=== PATIENT | female | born 2000 | race Caucasian/White ===

== ENCOUNTER 2023-06-09 21:08 | Emergency (ER) | payer OTHER, SELFPAY ==
--- NOTE | 2023-06-09 21:12 | ED.PSYCH ---
HPI - Psych General Chief Complaint: General Medical Stated Complaint: Crisis Eval Time Seen by Provider: 06/09/23 22:02 Source: patient Mode of arrival: ambulatory Limitations: no limitations History of Present Illness HPI Narrative: Patient comes to the emergency room complaining of anxiety, depression, PTSD/flashbacks. Patient states that she is not suicidal or homicidal, patient states that she wants to talk to the care team and get resources to get back into therapy. Patient states that about a year ago she was taking medications for mental conditions. Otherwise, patient has no complaints. Related Data Allergies Allergy/AdvReac Type Severity Reaction Status Date / Time amoxicillin [AMOXICILLIN] Allergy Intermediate HIVES Verified 06/09/23 21:15 Review of Systems Review of Systems: Constitutional : No Weight loss, No Fever, No Chills, No Night Sweats, No Fatigue, No Malaise ENT/Mouth : No Hearing loss, No Ear Pain, No Nasal Congestion, No Sinus Pain, No Hoarseness, No sore throat, No Rhinorrhea, No Swallowing Difficulty Eyes: No Eye Pain, No Swelling, No Redness, No Foreign Body, No Discharge, No Vision Changes Cardiovascular : No Chest Pain, No SOB, No Dyspnea on Exertion, No Orthopnea, No Edema, No Palpitations Respiratory : No Cough, No Sputum, No Wheezing, No Smoke Exposure, No Dyspnea Gastrointestinal : No Nausea, No Vomiting, No Diarrhea, No Constipation, No abdominal Pain, No Hematochezia, No Melena Genitourinary : no irregular bleeding, No Dysuria, No Urinary Frequency, No Hematuria, No Urinary Incontinence, No Urgency, No Flank Pain, No Urinary Flow Changes, No Hesitancy Musculoskeletal : No joint pain, No Myalgias, No Joint Swelling Skin : No Skin Lesions, No rash Neuro : No Weakness, No Numbness, No Paresthesias, No Loss of Consciousness, No Dizziness, No Headache Psych : Complaining of anxiety and depression, PTSD Co No SI/HI/AH/VH, No Social Issues, Heme/Lymph: No Bruising, No Bleeding,No Lymphadenopathy Endocrine : No Polyuria, No Polydipsia, No Temperature Intolerance [facility] Past Medical History Medical History (Updated 06/09/23 @ 22:28 by Leeanne Duran MD) ADD (attention deficit disorder) Chronic post-traumatic stress disorder (PTSD) Anxiety and depression Social History Social History Advance Directives: No Advance Directives Information Provided: No Physical Exam Vital Signs: Vital Signs: Last Vital Signs Temp 98.7 F 06/09/23 23:40 Pulse 87 06/09/23 23:40 Resp 18 06/09/23 23:40 BP 130/75 06/09/23 23:40 Pulse Ox 99 06/09/23 23:40 O2 Del Method Room Air 06/09/23 23:40 BMI result Body Mass Index 24.0 Const: Other: Appearance: Alert. Oriented X3. No acute distress. Eyes: Pupils equal, round and reactive to light. ENT: Pharynx normal. Neck: Normal inspection. Neck supple. No lymph nodes noted. No crepitus CVS: Normal heart rate and rhythm. Pulses normal. Normal S1 and S2 Respiratory: No respiratory distress. Breath sounds normal. No Wheezing. No rales Abdomen: Soft and nontender. No rigidity. No distention. Skin: Skin warm and dry. Normal skin color. Normal skin turgor. Extremities: No lower extremity edema. No Lacerations. No Rash Neuro: Oriented X 3. No motor deficit. No sensory deficit. Moving all extremities. No slurred speech. CN 2 through 12 grossly intact Psych: calm, cooperative, normal affect Course Course Course Narrative: This is an RME: Additional HPI, ROS, PE not included below will be deferred to primary provider. This is a [id number] presenting to the emergency department with complaints of increased depression. No SI/HI. No auditory or visual hallucinations. Endorsed some PTSD/flashbacks. Just wants someone to talk to. She works as a [employer] Plan: labs, ua, care team Medical Decision Making Medical Decision Making [facility] Narrative: -all of patient's labs pending -care team consult pending -patient is not suicidal or homicidal, Section 12 not indicated -my interpretation of labs, normal hematology and chemistry, negative test, negative UA and negative toxicology test -the care team evaluated the patient, patient was given resources for therapy, patient agreeable with plan, ready for discharge Differential Diagnosis Differential Diagnoses: The differential diagnosis associated with the presentation includes (Anxiety, depression, PTSD) Lab Data [facility] Lab Attestation statement: I reviewed the patient's lab results. 06/09/23 21:59 06/09/23 21:59 Labs: Lab Results 06/09/23 06/09/23 Range/Units 21:59 22:22 WBC 8.1 (4.8-10.8) X10*3/uL RBC 5.19 (4.20-5.50) X10*6/uL Hgb 14.4 (12.0-16.0) g/dl Hct 44.5 (37.0-47.0) % MCV 85.7 (80.0-98.0) fL MCH 27.7 (27.0-33.0) pg MCHC 32.4 (31.0-35.0) g/dl RDW 12.6 (11.0-16.0) % Plt Count 347 (160-400) X10*3/uL MPV 8.9 L (9.4-12.3) fL Immature Gran % (Auto) 0.2 (0.0-0.4) % Neut % (Auto) 70.9 (45-73) % Lymph % (Auto) 19.6 L (20-40) % Glenn % (Auto) 8.1 (2-11) % Eos % (Auto) 0.7 (0-4) % Baso % (Auto) 0.5 (0-2) % Lymph # (Auto) 1.6 (1.2-4.9) X10*3/uL [place] # (Auto) 0.7 (0.1-1.2) X10*3/uL Eos # (Auto) 0.1 (0.0-0.4) X10*3/uL Baso # (Auto) 0.0 (0.0-0.2) X10*3/uL Abs Immat Gran (auto) 0.02 (0.00-0.03) X10*3/uL Absolute Neuts (auto) 5.7 (2.0-8.3) x10*3/uL Absolute Nucleated RBC 0.000 (0.0-0.012) X10*3/uL Nucleated RBC % (auto) 0.0 (0.0-0.2) /100WBC Sodium 139 (135-145) mmol/L Potassium 3.8 (3.3-5.1) mmol/L Chloride 104 (96-108) mmol/L Carbon Dioxide 24 (22-29) mmol/L Anion Gap 15 (12-20) BUN 10 (9-16) mg/dL Creatinine 0.68 (0.5-1.4) mg/dL Estim Creat Clear Calc 110.1 Estimated GFR > 60 Random Glucose 92 (60-115) mg/dL Calcium 10.0 D (8.4-10.2) mg/dL Total Bilirubin 0.4 (0.0-1.0) mg/dL Direct Bilirubin 0.1 (0.0-0.5) mg/dL AST 18 (5-31) U/L ALT 10 (0-31) U/L Alkaline Phosphatase 108 (39-117) U/L Total Protein 8.8 H (6.5-8.0) g/dL Albumin 4.7 (3.5-5.0) g/dL Beta HCG, Quant < 2 mIU/mL Urine Color Yellow Urine Appearance Clear Urine pH 6.0 (5.0-9.0) Ur Specific [place] 1.015 (1.005-1.025) Urine Protein Negative (Neg-Trace) mg/dL Urine Glucose (UA) Negative (Negative) mg/dL Urine Ketones 15 (Negative) mg/dL Urine Blood Trace H (Negative) Urine Nitrite Negative (Negative) Ur Leukocyte Esterase Negative (Negative) Urine RBC 0-2 (0-2) /HPF Urine WBC 0-5 (0-5) /HPF Ur Squamous Epith Cells 0-2 (0-2) /HPF Urine Bacteria None Seen (None Seen) Hyaline Casts 0-2 (0-2) /LPF Urine Opiates Screen Not Detected (Not Detect) Urine Fentanyl Screen Not Detected (Not Detect) Ur Barbiturates Screen Not Detected (Not Detect) Ur Phencyclidine Scrn Not Detected (Not Detect) Ur Amphetamines Screen Not Detected (Not Detect) U Benzodiazepines Scrn Not Detected (Not Detect) Urine Cocaine Screen Not Detected (Not Detect) U Marijuana (THC) Screen Not Detected (Not Detect) Ethyl Alcohol < 10 mg/dL Discharge Plan Discharge Clinical Impression: Anxiety and depression Patient Disposition: Home, Self-Care Instructions: Anxiety (ED) Additional Instructions: Please follow-up with your primary care physician tomorrow. If you have any worsening or new symptoms, please return to the emergency room or call 911
[2023-06-09 21:17] VITALS: BP 132/90; PULSE 91; RESP 18; TEMP 36.3; O2SAT 98; BMI 24.0
--- NOTE | 2023-06-09 21:45 | PC.NURSE ---
Per SUDHIR, no SI/HI, does not need changeover.
[2023-06-09 22:03] LABS: MANUAL DIFF FLAG NO
[2023-06-09 22:04] LABS: Basophils Percent Auto 0.5 % (0-2); Eosinophils Absolute Auto 0.1 X10*3/uL (0.0-0.4); Eosinophils Percent Auto 0.7 % (0-4); Hematocrit 44.5 % (37.0-47.0); Hemoglobin 14.4 g/dl (12.0-16.0); Imm Gran Abs Auto 0.02 X10*3/uL (0.00-0.03); Imm Gran Pct Auto 0.2 % (0.0-0.4); Lymphocytes Absolute Auto 1.6 X10*3/uL (1.2-4.9); Lymphocytes Percent Auto 19.6 % (20-40); Mean Corpuscular HGB Conc 32.4 g/dl (31.0-35.0); Mean Corpuscular Hemoglobin 27.7 pg (27.0-33.0); Mean Corpuscular Volume 85.7 fL (80.0-98.0); Mean Platelet Volume 8.9 fL (9.4-12.3); Monocytes Absolute Auto 0.7 X10*3/uL (0.1-1.2); Monocytes Percent Auto 8.1 % (2-11); Neutrophils Absolute Auto 5.7 x10*3/uL (2.0-8.3); Neutrophils Percent Auto 70.9 % (45-73); Platelet Count 347 X10*3/uL (160-400); Red Blood Count 5.19 X10*6/uL (4.20-5.50); Red Cell Distribution Width 12.6 % (11.0-16.0); White Blood Count 8.1 X10*3/uL (4.8-10.8)
[2023-06-09 22:23] LABS: Ethanol < 10 mg/dL
[2023-06-09 22:28] LABS: Alanine Aminotransferase 10 U/L (0-31); Albumin Level 4.7 g/dL (3.5-5.0); Alkaline Phosphatase 108 U/L (39-117); Anion Gap 15 (12-20); Aspartate Amino Transferase 18 U/L (5-31); Bilirubin Direct 0.1 mg/dL (0.0-0.5); Bilirubin Total 0.4 mg/dL (0.0-1.0); Blood Urea Nitrogen 10 mg/dL (9-16); Carbon Dioxide 24 mmol/L (22-29); Chloride 104 mmol/L (96-108); Creatinine Clr Calc Pharmacy 110.1; Estimated Glomerular Filt Rate > 60; Glucose Random 92 mg/dL (60-115); HCG Quantitative < 2 mIU/mL; Potassium 3.8 mmol/L (3.3-5.1); Sodium 139 mmol/L (135-145); Total Protein 8.8 g/dL (6.5-8.0)
[2023-06-09 22:45] LABS: Appearance Urine Clear; Color Urine Yellow; Glucose Urine UA Negative (Negative); Leukocyte Esterase Urine Negative (Negative); Nitrite Urine Negative (Negative); Specific Gravity - Urine 1.015 (1.005-1.025); UMIC TRIGGER UACC YES; Urine Blood Trace (Negative); Urine Ketones 15 mg/dL (Negative); Urine Protein Negative (Neg-Trace)
[2023-06-09 22:48] LABS: Amphetamine Screen Urine Not Detected (Not Detect); Barbiturates, Urine Not Detected (Not Detect); Benzodiazepines Screen Urine Not Detected (Not Detect); Cannabinoid Screen Urine Not Detected (Not Detect); Cocaine Screen Urine Not Detected (Not Detect); Fentanyl, urine Not Detected (Not Detect); Opiate Screen Urine Not Detected (Not Detect); Phencyclidine Screen Urine Not Detected (Not Detect)
[2023-06-09 22:51] LABS: Bacteria Urine None Seen (None Seen); Hyaline Casts Urine 0-2 /LPF (0-2); RBC Urine 0-2 /HPF (0-2); Squamous Epithelial Cell Urine 0-2 /HPF (0-2); WBC Urine 0-5 /HPF (0-5)
[2023-06-09 23:40] VITALS: BP 130/75; PULSE 87; RESP 18; TEMP 37.1; O2SAT 99
== END 2023-06-10 01:39 | disposition home or self-care (01) ==
PROVIDERS: Physician Assistant Medical; Emergency Provider Emergency Medicine
DX: F41.9 Anxiety disorder, unspecified (principal); F32.A Depression, unspecified; F43.12 Post-traumatic stress disorder, chronic; F98.8 Other specified behavioral and emotional disorders with onset usually occurring in childhood and adolescence
CPT/HCPCS: 36415; 80048; 80076; 80307; 81001; 84702; 85025; 99284; S9485

== ENCOUNTER 2023-10-23 16:58 | Emergency (ER) | payer OTHER, SELFPAY ==
--- NOTE | ~2023-10-23 | US_ITS ---
EXAMINATION: US OBSTETRICAL ULTRASOUND CLINICAL INFORMATION: with cramping and vaginal spotting COMPARISON: None available. LMP: 09/19/2023. Gestational age by maternal dates is 4 weeks 6 days. Estimated date of delivery by maternal dates is 06/25/2024. TECHNIQUE: Both transabdominal and endovaginal scanning was performed. FINDINGS: A small gestational sac may be present which measures 4.5 mm which would be consistent with a gestational age of 5 weeks 0 days. A definitive yolk sac or pole is not seen although there is a tiny soft tissue nodule been present within the sac without any discernible motion or heart rate. Some small cystic areas are seen in the endometrium around the gestational sac. Nabothian cysts are seen within the cervix. TONY (estimated date of delivery based upon gestational sac size): 4 weeks 6 days +/- 4 days. MATERNAL ADNEXA: The right maternal ovary measures 3.7 x 1.8 x 1.9 cm. The left maternal ovary is not seen There is no significant maternal adnexal mass. No maternal pelvic ascites. US/US OB pelvic and transvaginal IMPRESSION: Presumed gestational sac seen in the endometrial canal without a yolk sac and a small nubbin of tissue noted. No heartbeat is seen. Some cystic areas are seen in the endometrium around this sac. Please correlate with hCG and repeat ultrasounds if needed.
[2023-10-23 17:15] VITALS: BP 126/84; PULSE 95; RESP 18; TEMP 36.4; O2SAT 100; BMI 24.2
--- NOTE | 2023-10-23 17:18 | ED_ITS ---
HPI - General Adult General Chief complaint: Vaginal Bleeding Stated complaint: ? Time Seen by Provider: 10/23/23 18:39 Source: patient and RN notes reviewed Mode of arrival: ambulatory Limitations: no limitations History of Present Illness HPI narrative: This is a 23-year-old female, , who presents to the emergency department with complaints of intermittent cramping as well as light vaginal spotting which occurred yesterday. Patient states that her last menstrual cycle was on September 16. She states that yesterday she noticed some cramping as well as light spotting. She states that the spotting has ceased. She does not have any active cramping at this time. She is seeing Diamond ISIDRO for her however does not have an appointment until November 08. She denies any fevers, chills, chest pain, shortness of breath, vomiting, nausea, or urinary symptoms. No other complaints or concerns at this time. MD complaint: , vaginal spotting, cramping Onset (ago): day(s) Radiation: non-radiation Severity: moderate Pain Consistency: now resolved Relieving factors: none Exacerbating factors: none Associated symptoms: denies other symptoms Treatments prior to arrival: none Related Data Allergies Allergy/AdvReac Type Severity Reaction Status Date / Time amoxicillin [AMOXICILLIN] Allergy Intermediate HIVES Verified 10/23/23 17:19 Review of Systems 2 Review of Systems: Yes all other systems are reviewed and are negative Constitutional: Constitutional: Reports as per [facility] Past Medical History Attestation statement: The following information was validated with the patient. Medical History ADD (attention deficit disorder) Chronic post-traumatic stress disorder (PTSD) Anxiety and depression Social History Social History Alcohol intake: former Physical Exam ED Vital Signs: Vital Signs - 24 hr 10/23/23 17:15 10/23/23 18:20 10/23/23 20:47 Temperature 97.5 F 98.0 F Pulse Rate 95 99 Respiratory Rate 18 18 14 Blood Pressure 126/84 123/74 113/77 Pulse Oximetry 100 99 99 Oxygen Delivery Method Room Air Room Air Room Air 10/23/23 21:03 Temperature 98.0 F Pulse Rate 99 Respiratory Rate 14 Blood Pressure 113/77 Pulse Oximetry 99 Oxygen Delivery Method Room Air BMI result Body Mass Index 24.2 Const General: cooperative, comfortable and no acute distress Orientation/consciousness: patient oriented x3 Limitations: no limitations HENMT Head: Yes normal to inspection, Yes normocephalic and Yes atraumatic Ears: hearing grossly normal bilaterally General nose exam: Normal external nose present Face and sinus: Yes normal facial exam Mouth: Normal oral and palatal mucosa present, oropharynx normal and moist mucous membranes Throat: Yes posterior oropharynx normal Eyes General: appearance normal, both eyes and all related structures Eyelids: Yes eyelids normal Conjunctivae: conjunctivae normal Sclerae: sclerae normal Pupils: Equal, round and reactive pupils present EOM: EOMs intact bilaterally Neck Neck: Yes normal visual inspection, Yes full ROM and Yes no lymphadenopathy Lymphatic: no lymphadenopathy noted Chest Chest palpation & inspection: normal inspection of the chest Resp Effort & Inspection: normal respiratory effort and able to speak in complete sentences Auscultation: clear to auscultation bilaterally, no crackles, no rales, no rhonchi and no wheezes Cardio Rate: regular rate Rhythm: regular rhythm Heart sounds: S1 normal heart sound present and S2 normal heart sound present GI Other: Abdomen is soft, nontender, nondistended Inspection: Yes normal to inspection Skin General skin exam: no rashes or lesions noted Trauma: no lacerations or abrasions Wounds: no wounds Neuro General: patient oriented x3 and moves all extremities Cranial nerves: Yes Equal, round and reactive pupils present Extrem General: Yes normal to inspection Right upper extremity: normal to inspection Left upper extremity: normal to inspection Right lower extremity: normal to inspection Left lower extremity: normal to inspection Course Course Course Narrative: RME: 23-year-old female who is last menstruation in September 16 presents to ED for lower abdominal cramping with vaginal spotting. Patient states no other complaints. Labs UA and ultrasound ordered. Reevaluation(s) Reevaluation #1: Discussed case with Dr. Banks, advised on SAB and ectopic warnings and recommending to come back to the ER with pelvic pain and or vaginal bleeding and to follow-up outpatient in 48 hours with follow-up hCG. Rh type positive, does not require RhoGAM at this time. Discussed plan with patient as well as family, they understand and agree with plan. Stable for discharge. Time: 20:38 Medical Decision Making Medical Decision Making MDM Narrative: This is a 23-year-old female, , approximately 3-4 weeks , who presents emergency department with light spotting with cramping since yesterday. Patient states that she only saw scant spotting yesterday this has since resolved. She also endorses some cramping. She states that she has high anxiety and would like to be checked out. Abdomen is soft and nontender. She is feeling well at this time. Vital signs within normal limits. Differential diagnoses include , threatened spontaneous , ectopic , abnormal uterine bleeding Plan: Labs, UA, ultrasound Differential Diagnosis Differential Diagnoses: The differential diagnosis associated with the presentation includes See above Admission/Observation Consideration of admission/observation: Escalation of care including admission/observation considered Escalation of care including admission/observation considered however given workup today not warranted at this time. Lab Data [facility] Lab Attestation statement: I reviewed the patient's lab results. 10/23/23 17:25 10/23/23 17:25 Labs: Lab Results 10/23/23 10/23/23 Range/Units 17:25 19:31 WBC 8.3 (4.8-10.8) X10*3/uL RBC 4.95 (4.20-5.50) X10*6/uL Hgb 14.3 (12.0-16.0) g/dl Hct 41.6 (37.0-47.0) % MCV 84.0 (80.0-98.0) fL MCH 28.9 (27.0-33.0) pg MCHC 34.4 (31.0-35.0) g/dl RDW 14.1 (11.0-16.0) % Plt Count 412 H (160-400) X10*3/uL MPV 9.6 (9.4-12.3) fL Immature Gran % (Auto) 0.2 (0.0-0.4) % Neut % (Auto) 71.7 (45-73) % Lymph % (Auto) 16.1 L (20-40) % [place] % (Auto) 10.3 (2-11) % Eos % (Auto) 1.3 (0-4) % Baso % (Auto) 0.4 (0-2) % Lymph # (Auto) 1.3 (1.2-4.9) X10*3/uL [place] # (Auto) 0.9 (0.1-1.2) X10*3/uL Eos # (Auto) 0.1 (0.0-0.4) X10*3/uL Baso # (Auto) 0.0 (0.0-0.2) X10*3/uL Abs Immat Gran (auto) 0.02 (0.00-0.03) X10*3/uL Absolute Neuts (auto) 6.0 (2.0-8.3) x10*3/uL Absolute Nucleated RBC 0.000 (0.0-0.012) X10*3/uL Nucleated RBC % (auto) 0.0 (0.0-0.2) /100WBC PT 12.8 (11.1-13.3) SEC INR 1.1 (0.9-1.1) APTT 26.3 (26.0-36.8) SEC Sodium 139 (135-145) mmol/L Potassium 3.7 (3.3-5.1) mmol/L Chloride 106 (96-108) mmol/L Carbon Dioxide 25 (22-29) mmol/L Anion Gap 12 (12-20) BUN 8 L (9-16) mg/dL Creatinine 0.66 (0.5-1.4) mg/dL Estim Creat Clear Calc 113.5 Estimated GFR > 60 Random Glucose 91 (60-115) mg/dL Calcium 10.0 (8.4-10.2) mg/dL Total Bilirubin 0.4 (0.0-1.0) mg/dL AST 15 (5-31) U/L ALT 10 (0-31) U/L Alkaline Phosphatase 84 (39-117) U/L Total Protein 8.0 (6.5-8.0) g/dL Albumin 4.4 (3.5-5.0) g/dL Beta HCG, Quant 3499 mIU/mL Urine Color Yellow Urine Appearance Clear Urine pH 6.5 (5.0-9.0) Ur Specific [place] 1.010 (1.005-1.025) Urine Protein Negative (Neg-Trace) mg/dL Urine Glucose (UA) Negative (Negative) mg/dL Urine Ketones Negative (Negative) mg/dL Urine Blood Negative (Negative) Urine Nitrite Negative (Negative) Ur Leukocyte Esterase Negative (Negative) Urine Test POSITIVE H (NEGATIVE) Blood Type A Positive Radiology Impression Discussion of test interpretation with radiology: I have reviewed the radiologist's reading. Radiologist Impression: EXAMINATION: US OBSTETRICAL ULTRASOUND CLINICAL INFORMATION: with cramping and vaginal spotting COMPARISON: None available. LMP: 09/19/2023. Gestational age by maternal dates is 4 weeks 6 days. Estimated date of delivery by maternal dates is 06/25/2024. TECHNIQUE: Both transabdominal and endovaginal scanning was performed. FINDINGS: A small gestational sac may be present which measures 4.5 mm which would be consistent with a gestational age of 5 weeks 0 days. A definitive yolk sac or pole is not seen although there is a tiny soft tissue nodule been present within the sac without any discernible motion or heart rate. Some small cystic areas are seen in the endometrium around the gestational sac. Nabothian cysts are seen within the cervix. TONY (estimated date of delivery based upon gestational sac size): 4 weeks 6 days +/- 4 days. MATERNAL ADNEXA: The right maternal ovary measures 3.7 x 1.8 x 1.9 cm. The left maternal ovary is not seen There is no significant maternal adnexal mass. No maternal pelvic ascites. US/US OB pelvic and transvaginal IMPRESSION: Presumed gestational sac seen in the endometrial canal without a yolk sac and a small nubbin of tissue noted. No heartbeat is seen. Some cystic areas are seen in the endometrium around this sac. Please correlate with hCG and repeat ultrasounds if needed. Dictated By: Mayank Russ MD Discharge Plan Discharge Clinical Impression: Patient Disposition: Home, Self-Care Instructions: (ED) Additional Instructions: You were seen in the emergency department and were found to be . Your lab work was reassuring. Please return if you develop any pelvic pain and or vaginal bleeding or any new or worsening symptoms. Please follow-up with your OBGYN in 48 hours to have a repeat hCG test. Your beta hCG was 3499, please report this to your OBGYN. Call tomorrow to have outpatient labs drawn. If any new or worsening symptoms occur including but not limited to chest pain, shortness breast, severe abdominal pain, nausea, vomiting or diarrhea, please return for re-evaluation. Interventions: ED Discharge Assessment Last Done: 10/23/23 21:03 Discharge Date/Time: 10/23/23 21:05 Print Language: Dominican
[2023-10-23 17:29] LABS: MANUAL DIFF FLAG NO
[2023-10-23 17:37] LABS: INTERNATIONAL NORM RATIO 1.1 (0.9-1.1); Prothrombin Time 12.8 SEC (11.1-13.3)
[2023-10-23 17:38] LABS: Basophils Percent Auto 0.4 % (0-2); Eosinophils Absolute Auto 0.1 X10*3/uL (0.0-0.4); Eosinophils Percent Auto 1.3 % (0-4); Hematocrit 41.6 % (37.0-47.0); Hemoglobin 14.3 g/dl (12.0-16.0); Imm Gran Abs Auto 0.02 X10*3/uL (0.00-0.03); Imm Gran Pct Auto 0.2 % (0.0-0.4); Lymphocytes Absolute Auto 1.3 X10*3/uL (1.2-4.9); Lymphocytes Percent Auto 16.1 % (20-40); Mean Corpuscular HGB Conc 34.4 g/dl (31.0-35.0); Mean Corpuscular Hemoglobin 28.9 pg (27.0-33.0); Mean Platelet Volume 9.6 fL (9.4-12.3); Monocytes Absolute Auto 0.9 X10*3/uL (0.1-1.2); Monocytes Percent Auto 10.3 % (2-11); Neutrophils Percent Auto 71.7 % (45-73); Platelet Count 412 X10*3/uL (160-400); Red Blood Count 4.95 X10*6/uL (4.20-5.50); Red Cell Distribution Width 14.1 % (11.0-16.0); White Blood Count 8.3 X10*3/uL (4.8-10.8)
[2023-10-23 17:39] LABS: Partial Thromboplastin Time 26.3 SEC (26.0-36.8)
[2023-10-23 18:00] LABS: Alanine Aminotransferase 10 U/L (0-31); Albumin Level 4.4 g/dL (3.5-5.0); Alkaline Phosphatase 84 U/L (39-117); Anion Gap 12 (12-20); Aspartate Amino Transferase 15 U/L (5-31); Bilirubin Total 0.4 mg/dL (0.0-1.0); Blood Urea Nitrogen 8 mg/dL (9-16); Carbon Dioxide 25 mmol/L (22-29); Chloride 106 mmol/L (96-108); Creatinine Clr Calc Pharmacy 113.5; Estimated Glomerular Filt Rate > 60; Glucose Random 91 mg/dL (60-115); HCG Quantitative 3499 mIU/mL; Potassium 3.7 mmol/L (3.3-5.1); Sodium 139 mmol/L (135-145)
[2023-10-23 18:20] VITALS: BP 123/74; RESP 18; O2SAT 99
[2023-10-23 19:48] LABS: Appearance Urine Clear; Color Urine Yellow; Glucose Urine UA Negative (Negative); Leukocyte Esterase Urine Negative (Negative); Nitrite Urine Negative (Negative); PH 6.5 (5.0-9.0); UPreg QC Valid YES; Urine Blood Negative (Negative); Urine Ketones Negative (Negative); Urine Pregnancy POSITIVE (NEGATIVE); Urine Protein Negative (Neg-Trace)
--- NOTE | 2023-10-23 20:32 | P.CONOB_ITS ---
[employer] - CN: HPI Data of Consult Consult date: 10/23/23 Primary Care Provider: Unknown Physician Consult Narrative Narrative: I was consulted on Elizabeth Torres who is a 23 year old female presenting to the emergency department complaining of intermittent cramping as well as light vaginal spotting which occurred yesterday. LMP 09/17/2023 making her by today at 6 weeks of gestation , no other concerns. The patient currently does not have any spotting The following workup was done emergency room hCG 60448, blood type A positive and a pelvic ultrasound done cc:: CC: OB [facility] Past Medical History Medical History ADD (attention deficit disorder) Chronic post-traumatic stress disorder (PTSD) Anxiety and depression Social History Social History Alcohol intake: former Smoked in Last 30 Days: No Use of substances other than those prescribed or required for medical reasons: No Advance Directives: No Advance Directives Information Provided: No Meds Allergies Allergy/AdvReac Type Severity Reaction Status Date / Time amoxicillin [AMOXICILLIN] Allergy Intermediate HIVES Verified 10/23/23 17:19 [employer] Physical Exam Vitals Vital signs: Temp Pulse Resp BP Pulse Ox O2 Del Method 97.5 F 95 18 123/74 99 Room Air 10/23/23 17:15 10/23/23 17:15 10/23/23 18:20 10/23/23 18:20 10/23/23 18:20 10/23/23 18:20 BMI result Body Mass Index 24.2 Additional Comments: Physical exam per VIKKI Tovar in the emergency room reported as the following: Abdomen exam soft nontender [employer] - Results Labs 10/23/23 17:25 10/23/23 17:25 Labs: Short CBC 10/23/23 Range/Units 17:25 WBC 8.3 (4.8-10.8) X10*3/uL Hgb 14.3 (12.0-16.0) g/dl Hct 41.6 (37.0-47.0) % Plt Count 412 H (160-400) X10*3/uL BMP 10/23/23 17:25 Sodium 139 Potassium 3.7 Chloride 106 Carbon Dioxide 25 BUN 8 L Creatinine 0.66 Calcium 10.0 Liver Function 10/23/23 Range/Units 17:25 Total Bilirubin 0.4 (0.0-1.0) mg/dL AST 15 (5-31) U/L ALT 10 (0-31) U/L Alkaline Phosphatase 84 (39-117) U/L Albumin 4.4 (3.5-5.0) g/dL Urine 10/23/23 Range/Units 19:31 Urine Color Yellow Urine Appearance Clear Urine pH 6.5 (5.0-9.0) Ur Specific [place] 1.010 (1.005-1.025) Urine Protein Negative (Neg-Trace) mg/dL Urine Glucose (UA) Negative (Negative) mg/dL Urine Test POSITIVE H (NEGATIVE) Assessment and Plan (1) Spotting in first trimester: Status: Acute Differential diagnosis includes ectopic , SAB or normal intrauterine Recommended to VIKKI Tovar in the emergency room the following: Pelvic exam to be performed SAB warnings/ectopic warnings to be given to the patient, she is to come back to the emergency room in case of pelvic pain and or vaginal bleeding Follow up in the office in 48 hours with hCG quantitative and pelvic ultrasound I spent a total of 20 minutes reviewing the chart, communicating to the emergency room provider and documenting the medical record
[2023-10-23 20:47] VITALS: BP 113/77; PULSE 99; RESP 14; TEMP 36.7; O2SAT 99
[2023-10-23 21:03] VITALS: BP 113/77; PULSE 99; RESP 14; TEMP 36.7; O2SAT 99
== END 2023-10-23 21:05 | disposition home or self-care (01) ==
PROVIDERS: Physician Assistant; Emergency Provider Internal Medicine
DX: O26.851 Spotting complicating pregnancy, first trimester (principal); Z3A.01 Less than 8 weeks gestation of pregnancy; Z79.899 Other long term (current) drug therapy; R10.2 Pelvic and perineal pain
CPT/HCPCS: 36415; 76801; 76817; 80053; 81003; 81025; 84702; 85025; 85610; 85730; 86900; 86901; 99284

== ENCOUNTER → 2023-10-23 17:27 | Outpatient (BNV) | payer OTHER, SELFPAY | PROVIDERS: Emergency Provider Internal Medicine; Visit Provider Obstetrics & Gynecology | DX: O26.851 Spotting complicating pregnancy, first trimester (principal) | CPT/HCPCS: 99283 ==

== ENCOUNTER 2023-10-25 09:12 | Outpatient (REF) | payer OTHER, SELFPAY ==
--- NOTE | ~2023-10-25 | US_ITS ---
EXAMINATION: US OBSTETRICAL PELVIC AND TRANSVAGINAL CLINICAL INFORMATION: Spotting, complicated . COMPARISON: ultrasound 2 days ago on 10/23/2023. LMP: 09/19/2023. Gestational age by maternal dates is 5 weeks 1 day. Estimated date of delivery by maternal dates is 06/25/2024. TECHNIQUE: Transabdominal and endovaginal scanning was performed. FINDINGS: Gestational sac is seen along with a yolk sac but no pole. At the time of the prior study 2 days ago, a definitive yolk sac was not seen. No pole or heartbeat is identified. Based upon the yolk sac size, gestational age would be 5 weeks 2 days, with an TONY of 06/24/2024. MATERNAL ADNEXA: The right maternal ovary measures 3.4 x 1.9 x 2.1 cm which includes a 1.4 x 1.7 x 1.5 cm cyst. The left maternal ovary measures 2.2 x 1.2 x 1.5 cm. There is no significant maternal adnexal mass. No maternal pelvic ascites. US/US OB pelvic and transvaginal IMPRESSION: A gestational sac is seen, with a yolk sac as well, which was not identified with certainty 2 days ago. No pole is identified at this time. Correlation with beta hCG levels is recommended, as nonvisualization of a pole could be due to an early stage of . Short-term sonographic follow-up and serial beta hCG levels are recommended to assess for development of a pole.
[2023-10-25 12:10] LABS: HCG Quantitative 6542 mIU/mL
== END 2023-10-25 09:13 | disposition home or self-care (01) ==
LOC: HO.US 09:12
PROVIDERS: Visit Provider Obstetrics & Gynecology
DX: O26.851 Spotting complicating pregnancy, first trimester (principal); Z3A.01 Less than 8 weeks gestation of pregnancy
CPT/HCPCS: 36415; 76801; 76817; 84702

== ENCOUNTER 2023-10-25 16:06 | Outpatient (AMB) | payer OTHER, SELFPAY ==
--- NOTE | 2023-10-25 16:07 | MHC.OFFVIS ---
Intake Visit Reasons: Er follow up Allergies amoxicillin [AMOXICILLIN] Allergy (Intermediate, Verified 10/23/23 17:19) NICOLEES HPI Comments Details: The patient is scheduled tele health visit this is a follow-up from an ER visit 2 days ago when she presented emergency room with slight cramping and mild vaginal spotting. The workup in the emergency room included the following hCG 20246 blood type A positive, pelvic ultrasound showed the following: Presumed gestational sac seen in the endometrial canal without a yolk sac and a small nubbin of tissue noted. No heartbeat is seen. Some cystic areas are seen in the endometrium around this sac. Please correlate with hCG and repeat ultrasounds if needed. Since then the patient has been doing well with minmal cramping but no vaginal bleeding. HCG done today was 6542, repeat pelvic ultrasound not read yet but unofficial reading showed a 5 weeks and 2 days of gestational intrauterine gestational sac EDC by ultrasound 06/24/2024 gestational sac and yolk sac seen but no pole identified PFSH Medical History ADD (attention deficit disorder) Chronic post-traumatic stress disorder (PTSD) Anxiety and depression Social History Alcohol intake: former Review of Systems Const All systems reviewed & are unremarkable except as noted in HPI and below Reports as per HPI and Reports no additional complaints GI Reports no additional complaints Reports no additional complaints Telehealth Telehealth Telehealth Platform: Telephone Location of provider rendering services: practice address Location of patient: address on file Patient Identification confirmed using: Name, : Yes Telehealth method: video Patient verbally consented to treatment: Yes Patient verbally consented to billing insurance company: Yes Patient informed of any privacy concerns related to visit: Yes Assessment & Plan Assessment & Plan (1) Early stage of : Code(s): Z34.90 - Encounter for supervision of normal , unspecified, unspecified trimester Category: Medical Plan: Discussed with the patient the finding on ultrasound, SAB warnings given to patient, she is to call or go to emergency room in case of pelvic pain and or vaginal bleeding. Will repeat ultrasound in 11 days , vitamin 1 tablet p.o. q.d. all questions answered, the patient verbalized understanding. I spent a total of 20 minutes reviewing the chart, talking to the patient via video and documenting in the medical record. Orders: Orders US OB pelvic and transvaginal 11/07/23 Z34.90 - Encounter for supervision of normal , unspecified, unspecified trimester Coding Level of Care Code Tele Est Pt Level 1 (50473) Diagnoses Early stage of Z34.90
== END 2023-10-25 18:43 ==
PROVIDERS: Visit Provider Obstetrics & Gynecology
DX: Z34.90 Encounter for supervision of normal pregnancy, unspecified, unspecified trimester (principal)
CPT/HCPCS: 99211

== ENCOUNTER 2023-11-07 12:52 | Outpatient (REF) | payer OTHER, SELFPAY | END 2023-11-07 12:53 | disposition home or self-care (01) | LOC: HO.US 12:52 | PROVIDERS: Visit Provider Obstetrics & Gynecology | DX: Z13.89 Encounter for screening for other disorder (principal) ==

== ENCOUNTER 2023-11-08 08:13 | Outpatient (REF) | payer OTHER, SELFPAY ==
--- NOTE | ~2023-11-08 | US_ITS ---
EXAMINATION: US OBSTETRICAL ULTRASOUND CLINICAL INFORMATION: COMPARISON: 10/25/2023 LMP: 09/19/2023. Gestational age by maternal dates is 7 weeks 1 day. Estimated date of delivery by maternal dates is 06/25/2024. TECHNIQUE: Transabdominal pelvic ultrasound was performed. FINDINGS: There is a single intrauterine gestational sac with no visible visible yolk sac but a present embryo/fetus with cardiac activity. There is no significant subchorionic hemorrhage or hematoma. HR: 125 beats per minute. CRL (crown rump length): 0.98 cm (7 weeks 1 day +/- 4 days). TONY (estimated date of delivery): 06/25/2024 +/- 4 days. MATERNAL ADNEXA: The right maternal ovary measures 2.9 x 1.9 x 1.9 cm. The left maternal ovary measures 2.2 x 1.8 x 1.7 cm. There is no significant maternal adnexal mass. No maternal pelvic ascites. US/US OB <= 14 weeks fetus IMPRESSION: 1. Single intrauterine gestation with ultrasound gestational age of 7 weeks 1 day +/- 4 days. 2. Estimated date of delivery is 06/25/2024 +/- 4 days. 3. No maternal adnexal mass or pelvic ascites.
== END 2023-11-08 08:14 | disposition home or self-care (01) ==
LOC: HO.US 08:13
PROVIDERS: Visit Provider Obstetrics & Gynecology
DX: Z34.91 Encounter for supervision of normal pregnancy, unspecified, first trimester (principal); Z3A.01 Less than 8 weeks gestation of pregnancy
CPT/HCPCS: 76801

== ENCOUNTER 2023-11-08 09:55 | Outpatient (AMB) | payer OTHER, SELFPAY ==
--- NOTE | 2023-11-08 09:56 | MHC.OFFVIS ---
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 On vitamin 1 tablet p.o. q.d.. No pelvic cramping and or bleeding. Complaining of vaginal discharge with no associated vaginal odor and/ or itching. Ob Ultrasound done today showed the following: There is a single intrauterine gestational sac with no visible visible yolk sac but a present embryo/fetus with cardiac activity. There is no significant subchorionic hemorrhage or hematoma. HR: 125 beats per minute. CRL (crown rump length): 0.98 cm (7 weeks 1 day +/- 4 days). TONY (estimated date of delivery): 06/25/2024 +/- 4 days. MATERNAL ADNEXA: The right maternal ovary measures 2.9 x 1.9 x 1.9 cm. The left maternal ovary measures 2.2 x 1.8 x 1.7 cm. There is no significant maternal adnexal mass. No maternal pelvic ascites. [facility] Medical History ADD (attention deficit disorder) Chronic post-traumatic stress disorder (PTSD) Anxiety and depression Social History Alcohol intake: former Patient : Yes Physical Exam Vital Signs: Last Vital Signs BP 120/76 11/08/23 09:58 BMI result Body Mass Index 24.2 Assessment & Plan Assessment & Plan (1) Early stage of : Code(s): Z34.90 - Encounter for supervision of normal , unspecified, unspecified trimester Category: Medical Plan: Discussed with the patient the results the ultrasound. vitamin 1 tablet p.o. q.d.. SAB warnings given to patient, instructions given the patient to call or go to emergency room in case of pelvic cramping and or bleeding and to schedule initial OB appointment for care. All questions answered, the patient verbalized understanding and agreed with the plan. (2) Vaginal discharge: Code(s): N89.8 - Other specified noninflammatory disorders of vagina Category: Medical Plan: GC/CT with BV panel collected will check the results and treat accordingly. All questions answered, the patient verbalized understanding Coding Level of Care Code Est Pt Level 3 (33097) Diagnoses Early stage of Z34.90 Vaginal discharge N89.8
[2023-11-08 09:58] VITALS: BP 120/76; BMI 24.2
== END 2023-11-08 10:13 | disposition home or self-care (01) ==
LOC: HO.HWS 09:55
PROVIDERS: Visit Provider Obstetrics & Gynecology
DX: Z34.90 Encounter for supervision of normal pregnancy, unspecified, unspecified trimester (principal); N89.8 Other specified noninflammatory disorders of vagina
CPT/HCPCS: 99213

== ENCOUNTER 2023-11-08 10:13 | Outpatient (REF) | payer OTHER, SELFPAY ==
[2023-11-08 14:35] LABS: CT PCR NOT DETECTED (Not Detect.); NG PCR NOT DETECTED (Not Detect.)
[2023-11-09 09:26] LABS: BV Int Neg Control Negative (Negative); BV Int Pos Control Positive (Positive)
== END 2023-11-08 10:14 | disposition home or self-care (01) ==
LOC: HO.LNP 10:13
PROVIDERS: Visit Provider Obstetrics & Gynecology
DX: N89.8 Other specified noninflammatory disorders of vagina (principal)
CPT/HCPCS: 0353U; 87480; 87510; 87660

== ENCOUNTER 2023-11-16 10:03 | Outpatient (REF) | payer OTHER, SELFPAY ==
[2023-11-16 12:32] LABS: Hematocrit 42.6 % (37.0-47.0); Hemoglobin 14.2 g/dl (12.0-16.0); Mean Corpuscular HGB Conc 33.3 g/dl (31.0-35.0); Mean Corpuscular Hemoglobin 28.7 pg (27.0-33.0); Mean Corpuscular Volume 86.2 fL (80.0-98.0); Mean Platelet Volume 9.6 fL (9.4-12.3); Platelet Count 306 X10*3/uL (160-400); Red Blood Count 4.94 X10*6/uL (4.20-5.50); Red Cell Distribution Width 13.8 % (11.0-16.0); White Blood Count 8.2 X10*3/uL (4.8-10.8)
[2023-11-16 13:18] LABS: Amphetamine Screen Urine Not Detected (Not Detect); Barbiturates, Urine Not Detected (Not Detect); Benzodiazepines Screen Urine Not Detected (Not Detect); Buprenorphine Scr Not Detected (Not Detect); Cannabinoid Screen Urine Not Detected (Not Detect); Cocaine Screen Urine Not Detected (Not Detect); Fentanyl, urine Not Detected (Not Detect); Methadone Screen, Urine Not Detected (Not Detect); Opiate Screen Urine Not Detected (Not Detect); Oxycodone Screen Urine Not Detected (Not Detect); Phencyclidine Screen Urine Not Detected (Not Detect)
[2023-11-17 08:21] LABS: HBsAGNum1 0.22 S/CO (0.00-0.99); HIV AB/AG Nonreactive (Nonreactive); HIV Num 1 0.06 S/CO (0.00-0.99); Hepatitis B Surface Antigen Negative (Negative); ~HepC Num1 0.24 S/CO (0.00-0.79); ~Hepatitis C Antibody Nonreactive (Nonreactive)
[2023-11-17 08:24] LABS: Syphilis Screen Nonreactive (Nonreactive)
[2023-11-17 09:08] LABS: Rubella IgG Antibody 6.33 Index
[2023-12-02 14:44] LABS: CF Ethnicity NG; Cystic Fibrosis NEGATIVE (NEGATIVE)
== END 2023-11-16 10:04 | disposition home or self-care (01) ==
LOC: HO.LAB 10:03
PROVIDERS: Visit Provider Advanced Practice Midwife
DX: Z32.01 Encounter for pregnancy test, result positive (principal)
CPT/HCPCS: 80307; 81220; 85027; 86762; 86780; 86787; 86803; 86850; 86900; 87086; 87340; 87389

== ENCOUNTER 2023-11-19 21:15 | Emergency (ER) | payer OTHER, SELFPAY | END 2023-11-19 21:48 | disposition left against medical advice (07) | PROVIDERS: Emergency Provider Emergency Medicine | DX: O20.9 Hemorrhage in early pregnancy, unspecified (principal); Z3A.08 8 weeks gestation of pregnancy; Z53.21 Procedure and treatment not carried out due to patient leaving prior to being seen by health care provider ==

== ENCOUNTER 2023-11-30 10:18 | Outpatient (AMB) | payer OTHER, SELFPAY ==
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
[2023-11-30 10:49] VITALS: BP 110/68; BMI 24.4
== END 2023-11-30 12:03 | disposition home or self-care (01) ==
PROVIDERS: Visit Provider Advanced Practice Midwife
DX: Z34.90 Encounter for supervision of normal pregnancy, unspecified, unspecified trimester (principal); Z34.00 Encounter for supervision of normal first pregnancy, unspecified trimester
CPT/HCPCS: 25942

== ENCOUNTER 2023-11-30 10:18 | Outpatient (REF) | payer OTHER, SELFPAY | END 2023-11-30 10:19 | disposition home or self-care (01) | LOC: HO.LAB 10:18 | PROVIDERS: Visit Provider Advanced Practice Midwife | DX: Z34.00 Encounter for supervision of normal first pregnancy, unspecified trimester (principal) | CPT/HCPCS: 81003; 88142; 99212 ==

== ENCOUNTER 2023-12-28 11:10 | Outpatient (AMB) | payer OTHER, SELFPAY ==
--- NOTE | 2023-12-28 11:17 | MHC.OFFVIS ---
Intake Visit Reasons: JUAAN Allergies amoxicillin [AMOXICILLIN] Allergy (Intermediate, Verified 11/30/23 10:50) HIVES [facility] Medical History ADD (attention deficit disorder) Chronic post-traumatic stress disorder (PTSD) Anxiety and depression Family History (Updated 11/16/23 @ 10:12 by Chela Henson LPN) Mother Hypertension Maternal Grandmother Hypertension Social History (Updated 11/16/23 @ 10:16 by Chela Henson LPN) Household Members: Other Both parents involved: Yes Housing: House Are you a primary physician primary care sports medicine to a significant other at home: No Do you presently have visiting nurse or other home services: No 75 years or older and lives alone: No Alcohol intake: former Special dina needs: No Agree to transfusion: Yes Female Reproductive History Menstrual Age of Menarche: 14 Coding
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
[2023-12-28 11:22] VITALS: BP 100/60; BMI 24.4
== END 2023-12-28 13:03 | disposition home or self-care (01) ==
LOC: HO.HWSM 11:10
PROVIDERS: Visit Provider Advanced Practice Midwife
DX: Z34.00 Encounter for supervision of normal first pregnancy, unspecified trimester (principal); O99.340 Other mental disorders complicating pregnancy, unspecified trimester; F32.A Depression, unspecified
CPT/HCPCS: 25942

== ENCOUNTER → 2023-12-28 11:10 | Outpatient (BNVA) | payer OTHER, SELFPAY | PROVIDERS: Visit Provider Advanced Practice Midwife | DX: O99.342 Other mental disorders complicating pregnancy, second trimester (principal); F32.A Depression, unspecified; Z3A.14 14 weeks gestation of pregnancy | CPT/HCPCS: 99212 ==

== ENCOUNTER 2024-01-25 11:11 | Outpatient (AMB) | payer OTHER, SELFPAY ==
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
[2024-01-25 11:30] VITALS: BP 110/62; BMI 25.6
== END 2024-01-25 13:07 | disposition home or self-care (01) ==
LOC: HO.HWSM 11:11
PROVIDERS: Visit Provider Advanced Practice Midwife
DX: Z34.90 Encounter for supervision of normal pregnancy, unspecified, unspecified trimester (principal)
CPT/HCPCS: 25942

== ENCOUNTER → 2024-01-25 11:11 | Outpatient (BNVA) | payer OTHER, SELFPAY | PROVIDERS: Visit Provider Advanced Practice Midwife | DX: Z34.82 Encounter for supervision of other normal pregnancy, second trimester (principal) | CPT/HCPCS: 99212 ==

== ENCOUNTER 2024-02-22 11:03 | Outpatient (AMB) | payer OTHER, SELFPAY ==
[2024-02-22 11:13] VITALS: BP 110/62; BMI 26.9
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
== END 2024-02-22 11:48 | disposition home or self-care (01) ==
LOC: HO.HWSM 11:03
PROVIDERS: Visit Provider Advanced Practice Midwife
DX: Z34.00 Encounter for supervision of normal first pregnancy, unspecified trimester (principal)
CPT/HCPCS: 25942; 59425

== ENCOUNTER → 2024-02-22 11:03 | Outpatient (BNVA) | payer OTHER, SELFPAY | PROVIDERS: Visit Provider Advanced Practice Midwife | DX: Z34.02 Encounter for supervision of normal first pregnancy, second trimester (principal) | CPT/HCPCS: 99212 ==